=== PATIENT | male | born 1965 | race Two or more races ===

== ENCOUNTER 2019-08-03 14:30 | Emergency (ER) | payer SELFPAY ==
[~2019-08-03] VITALS: Ht 170.2 cm; Wt 68.0 kg
--- NOTE | 2019-08-03 14:35 | NUR ---
ED Nurse Note: Patient HILDA, found passed out in the street d/t alcohol intoxication. Patient currently being uncooperative with care,slurring words. Patient in bed, nurse sitting close to patient. to monitor for safety. Patient Addendum: 08/03/19 at 1558 by N[facility]EL[facility] ED Nurse Note: Patient HILDA, found passed out in the street d/t alcohol intoxication. Patient currently being uncooperative with care, slurring words. Patient in bed, nurse sitting close to patient to monitor for safety. 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 Urine collected with urinal. IV started in right hand, blood collected and sent along with urine specimen to lab. Patient sinus rhythm on the monitor.
[2019-08-03 14:40] VITALS: BP 178/98
--- NOTE | 2019-08-03 14:52 | Emergency Room Report ---
History of Present Illness General Chief Complaint: Alcohol Intoxication Source: Patient, EMS Present Illness HPI 54 YO Male presents to the ED brought by EMS for AMS. Pt. reports ETOH consumption. He denies pain, He denies recent fall. He denies allergies or PMHX. Denies abdominal pain, Nausea or vomiting. He denies dizziness or weakness. Pt. denies SI/HI. Pt. denies having a medical complaint. Denies CP or SOB. Denies drug use. Allergies: Coded Allergies: No Known Allergies (Unverified , 08/03/19) COVID-19 Screening Contact w/high risk pt: No Recent Travel to affected area: No Experienced COVID-19 symptoms?: No Patient History Past Medical History: none Past Surgical History: none Social History: Reports: alcohol use Reviewed Nursing Documentation: PMH: Agreed; PSxH: Agreed Nursing Documentation-PMH Past Medical History: No Stated History Review of Systems All Other Systems: negative except mentioned in HPI Physical Exam Vital Signs Date Time Temp Pulse Resp B/P (MAP) Pulse Ox O2 Delivery O2 Flow Rate FiO2 08/03/19 14:27 97.5 97 18 178/98 (124) 98 Room Air Medical Decision Making PA Attestation Dr. Larios is my supervising Physician whom patient management has been discussed with. ER Course Pt. presents to the ED intoxicated with alcohol, pt. is NAD, pt. is alert, no obvious signs of trauma, Ddx considered but are not limited to ETOH, Trauma, Syncope, dementia, OD Vital signs: are WNL, pt. is afebrile H&PE are most consistent with ETOH abuse. ORDERS: -CBC: unremarkable -CMP: unremarkable -ETOH Serum:367 - Tylenol and ASA level: WNL -UDS:Negative CT Head: WNL ED INTERVENTIONS: Observance while he detoxifies. Pt. was allowed to sleep/ rest. PT. became awake and alert x 3 DISCHARGE: At this time pt. is stable for d/c to home. Will provide printed patient care instructions, and any necessary prescriptions. Care plan and follow up instructions have been discussed with the patient prior to discharge. CT/MRI/US Diagnostic Results CT/MRI/US Diagnostic Results : Imaging Test Ordered: CT Head No Contrast Impression " No evidence of acute fracture, hemorrhage, or intracranial process." Per official radiology report- Please see report for specific details. Last Vital Signs Date Time Temp Pulse Resp B/P (MAP) Pulse Ox O2 Delivery O2 Flow Rate FiO2 08/03/19 14:27 97.5 97 18 178/98 (124) 98 Room Air Disposition: HOME, SELF-CARE Condition: Stable Tennille Solorio Aug 03, 2019 14:52
--- NOTE | 2019-08-03 15:13 | NUR ---
ED Nurse Note: CT called for CT head
[2019-08-03 15:28] LABS: BASOPHILS % (AUTO) 1.2 % (0.0-2.0); EOSINOPHILS % (AUTO) 1.7 % (0.0-3.0); HEMATOCRIT 46.9 % (42.0-52.0); HEMOGLOBIN 15.5 G/DL (14.2-18.0); LYMPHOCYTES % (AUTO) 31.4 % (20.0-45.0); MEAN CORPUSCULAR VOLUME 94 FL (80-99); MONOCYTES % (AUTO) 6.8 % (1.0-10.0); NEUTROPHILS % (AUTO) 58.9 % (45.0-75.0); PLATELET COUNT 180 K/UL (150-450); RED BLOOD COUNT 4.97 M/UL (4.70-6.10); RED CELL DISTRIBUTION WIDTH 13.7 % (11.6-14.8); WHITE BLOOD COUNT 2.8 K/UL (4.8-10.8)
--- NOTE | 2019-08-03 15:46 | Diagnostic Imaging Report ---
History: PAIN Exam: CT HEAD Without Contrast Technique more: CTDI is 53.40 mGy and DLP is 1018.80 mGy-cm. Technique more: One or more of the following dose reduction techniques were used: automated exposure control, adjustment of the mA and/or kV according to patient size, use of iterative reconstruction technique. Comparison: None available FINDINGS: No intracranial hemorrhage, mass effect or CT evidence of acute infarct. The ventricles are within limits and midline. Convexity volume loss. The visualized paranasal sinuses and mastoids are clear. Old right medial orbital wall blowout fracture deformity. IMPRESSION: No intracranial hemorrhage, mass effect or CT evidence of acute infarct.
[2019-08-03 16:08] LABS: ALANINE AMINOTRANSFERASE 35 U/L (12-78); ALBUMIN 4.4 G/DL (3.4-5.0); ALBUMIN/GLOBULIN RATIO 1.2 (1.0-2.7); ALKALINE PHOSPHATASE 86 U/L (46-116); ASPARTATE AMINO TRANSFERASE 35 U/L (15-37); BILIRUBIN,TOTAL 0.2 MG/DL (0.2-1.0); BLOOD UREA NITROGEN 6 mg/dL (7-18); CALCIUM 8.5 MG/DL (8.5-10.1); CARBON DIOXIDE 21 MMOL/L (21-32); CHLORIDE 108 MMOL/L (98-107); CREATININE 0.7 MG/DL (0.55-1.30); POTASSIUM 3.8 MMOL/L (3.5-5.1); SODIUM 147 MMOL/L (136-145)
--- NOTE | 2019-08-03 16:32 | NUR ---
ED Nurse Note: Patient requested to use the urinal. Patient unsteady on feet, stayed with patient while he stood at bedside to use the urinal, patient appears intoxicated on ETOH, resistant to assistance and care. Urine void of 350 mL. Patient back in bed comfortably resting, bed in lowest position.
--- NOTE | 2019-08-03 19:20 | NUR ---
ED Nurse Note: Pt endorsed to me from KAREN Galindo. Pt resting in bed with eyes closed,will continue to monitor
[2019-08-03 19:30] VITALS: BP 164/80
[2019-08-03 21:45] VITALS: BP 164/80
--- NOTE | 2019-08-03 21:45 | NUR ---
ER DISCHARGE NOTE: Patient is cleared to be discharged per ERMD, pt is aox4, on room air, with stable vital signs. pt was given dc and prescription instructions, pt was able to verbalize understanding, pt id band and iv site removed without complications. pt is able to ambulate with steady gait. pt took all belongings.
== END 2019-08-03 21:45 | disposition home or self-care (01) ==
LOC: EDBD 14:30 → EMR 15:09
DX: R41.82 Altered mental status, unspecified (principal); F10.129 Alcohol abuse with intoxication, unspecified
CPT/HCPCS: 36415; 70450; 80053; 80307; 85025; 99284; G0480